=== PATIENT | female | born 1960 | race Caucasian/White ===

== ENCOUNTER 2016-10-13 13:13 | Emergency (ER) | payer OTHER ==
--- NOTE | 2016-10-13 15:19 | ED NURSING NOTES ---
Clinical Report - Nurses [facility] [address] [place] [address] 10/13/2016 13:18 Patient: CHLOE STINSON TRIAGE Triage time 13:40 Oct 13 2016. Acuity: LEVEL 4. Chief Complaint: (back pain). --13:44 Deven Montgomery R.N. 13:40 10/13/16. BP: 145/76. HR: 84. RR: 18. O2 saturation: 96%. Temp: 98.5 F. Pain level now 05/20. --13:44 Deven Montgomery R.N. Weight: 68 kg stated. Height/Length: 62 inches Per Patient. BMI: 27.4. --13:43 Deven Montgomery R.N. Medications Albuterol Sulfate HFA Inhalation. Clarithromycin Oral 500 mg, 2x a day. FLUoxetine HCl Oral. Hydrocodone-Acetaminophen Oral. LaMICtal Oral. PredniSONE Oral 40 mg, daily. Qvar Inhalation. --13:42 Deven Montgomery R.N. Methadone HCl Oral. --13:42 Deven Montgomery R.N. Allergies No Known Drug Allergy. --13:42 Deven Montgomery R.N. History Arrived by private vehicle. ( Pt states that she was running las week and fell. No pain then but 3 days ago began having R sided back. No pain with urination, no obvious). 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 SOCIAL HX: Light tobacco smoker. Occasional alcohol use. No drug use. --13:44 Deven Montgomery R.N. PROBLEMS: COPD - Chronic Obstructive Pulmonary Disease. Back Pain. Asthma. --13:42 Deven Montgomery R.N. Interventions ID band on patient. To treatment room. --13:44 Deven Montgomery R.N. DISPOSITION / DISCHARGE Departure time: 1525. Condition at departure: unchanged and stable. No learning barriers present. Discharge instructions provided and reviewed with the patient. Reviewed warnings. Reviewed medication(s). Treatments reviewed. Patient verbalized understanding. Written instructions provided in Kyrgyz. The patient was discharged by the nurse practitioner. She was discharged home. She left the Emergency Department ambulatory and via private vehicle. Patient driving. --15:35 Deven Montgomery R.N. 15:34 10/13/16. BP: 148/82. HR: 83. RR: 20. O2 saturation: 98%. Temp: 98 F. Pain level now 10/10. --15:35 Deven Montgomery R.N. Locked/Released at 10/13/2016 20:31 by Deven Montgomery R.N.
--- NOTE | 2016-10-13 15:19 | ED NURSING NOTES ---
Clinical Report - Nurses [facility] [address] [place] [address] 10/13/2016 13:18 Patient: CHLOE STINSON TRIAGE Triage time 13:40 Oct 13 2016. Acuity: LEVEL 4. Chief Complaint: (back pain). --13:44 Deven Montgomery R.N. 13:40 10/13/16. BP: 145/76. HR: 84. RR: 18. O2 saturation: 96%. Temp: 98.5 F. Pain level now 05/20. --13:44 Deven Montgomery R.N. Weight: 68 kg stated. Height/Length: 62 inches Per Patient. BMI: 27.4. --13:43 Deven Montgomery R.N. Medications Albuterol Sulfate HFA Inhalation. Clarithromycin Oral 500 mg, 2x a day. FLUoxetine HCl Oral. Hydrocodone-Acetaminophen Oral. LaMICtal Oral. PredniSONE Oral 40 mg, daily. Qvar Inhalation. --13:42 Deven Montgomery R.N. Methadone HCl Oral. --13:42 Deven Montgomery R.N. Allergies No Known Drug Allergy. --13:42 Deven Montgomery R.N. History Arrived by private vehicle. ( Pt states that she was running las week and fell. No pain then but 3 days ago began having R sided back. No pain with urination, no obvious). 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 SOCIAL HX: Light tobacco smoker. Occasional alcohol use. No drug use. --13:44 Deven Montgomery R.N. PROBLEMS: COPD - Chronic Obstructive Pulmonary Disease. Back Pain. Asthma. --13:42 Deven Montgomery R.N. Interventions ID band on patient. To treatment room. --13:44 Deven Montgomery R.N. DISPOSITION / DISCHARGE Departure time: 1525. Condition at departure: unchanged and stable. No learning barriers present. Discharge instructions provided and reviewed with the patient. Reviewed warnings. Reviewed medication(s). Treatments reviewed. Patient verbalized understanding. Written instructions provided in Pashto. The patient was discharged by the nurse practitioner. She was discharged home. She left the Emergency Department ambulatory and via private vehicle. Patient driving. --15:35 Deven Montgomery R.N. 15:34 10/13/16. BP: 148/82. HR: 83. RR: 20. O2 saturation: 98%. Temp: 98 F. Pain level now 10/10. --15:35 Deven Montgomery R.N. Locked/Released at 10/13/2016 20:31 by Deven Montgomery R.N.
--- NOTE | 2016-10-13 15:19 | ED CLINICAL REPORT ---
Clinical Report - Physicians/Mid Levels [facility] [address] [place] [address] 10/13/2016 13:18 Patient: CHLOE STINSON Time Seen: 14:21; initial patient contact, initial documentation, patient care assumed. Arrived- By private vehicle. Historian- patient. HISTORY OF PRESENT ILLNESS Chief Complaint: BACK PAIN and CHRONIC BACK PAIN. It is described as being severe and in the area of the right SI joint and right gluteus and radiating to the right hip, thigh, knee and calf. The quality is noted to be "pain" and similar to prior episodes. Onset- about 3 - 5 days ago and it is still present. Modifying factors- worsened by standing, walking, rotation to the right or left, bending over or lifting. Not relieved by anything. No bladder dysfunction or bowel dysfunction. Mild sensory loss involving the right lower leg (c/o of some numbness down to her calf area, and tingling). Patient notes the possibility of an injury but denies injury to the head or neck. Mechanism of injury- she was lifting and fell while walking. (not sure if she injured her back or not, fell about a week ago, also picks her 60lb dog up). No other injury. Similar symptoms previously: Chronically, as bad. Recent medical care: Not recently seen/assessed. REVIEW OF SYSTEMS No fever, difficulty with urination, hematuria, vaginal discharge or difficulty breathing. No chest pain, abdominal pain, vomiting or diarrhea. The patient has had urinary frequency. All systems otherwise negative, except as recorded above. PAST HISTORY See nurses notes. PROBLEMS: COPD - Chronic Obstructive Pulmonary Disease. Back Pain. Asthma. --13:42 Deven Montgomery, RRamya. SOCIAL HISTORY Light tobacco smoker. Occasional alcohol use. No drug use. No recent travel. Is a local resident. FAMILY HISTORY Negative. ADDITIONAL NOTES The nursing notes have been reviewed with agreement regarding the chief complaint, HPI, ROS, PMH and patient medications and allergies. PHYSICAL EXAM Vital Signs: 10/13/2016 13:40 BP: 145/76. HR: 84. RR: 18. O2 saturation: 96%. Temp: 98.5 F. Have been reviewed as normal and appear to be correct. Appearance: Alert. No acute distress. HEENT: Normal external inspection. Eyes: Pupils equal, round and reactive to light. ENT: Ears normal. Pharynx normal. Neck: Normal inspection. Neck nontender. Painless ROM. CVS: Heart sounds normal. Pulses normal. Respiratory: No respiratory distress. Breath sounds normal. Abdomen: No visible injury. Soft and nontender. Back: Abnormal inspection. Back tenderness present. Mild soft tissue tenderness in the lower central lumbar area. No painless ROM. Mildly limited ROM in the back- in the lumbar spine: decreased flexion and rotation to the right and left. No muscle spasm in the back, vertebral point tenderness or CVA tenderness. Skin: Skin warm and dry. Normal skin color. No rash. Normal skin turgor. Extremities: Extremities exhibit normal ROM. Extremities nontender. Neuro: Oriented X 3. Mood/affect normal. No motor deficit. No sensory deficit. LABS, X-RAYS, AND EKG Laboratory Tests: UA-Culture if indicated: (CAITIE: 10/13/2016 14:32) ( MsgRcvd 10/13/2016 14:52) Final results Test Result Flag Units (Reference) URINE COLOR YELLOW URINE APPEARANCE CLEAR URINE GLUCOSE NEGATIVE (NEGATIVE) URINE BILIRUBIN NEGATIVE (NEGATIVE) URINE KETONE NEGATIVE (NEGATIVE) URINE SPECIFIC GRAVITY 1.025 (1.010-1.030) URINE PH 6.0 (5.0-8.0) URINE PROTEIN NEGATIVE (NEGATIVE) URINE UROBILINOGEN 0.2 EU/dL (0.2-1.0) URINE NITRITE NEGATIVE (NEGATIVE) URINE BLOOD NEGATIVE (NEGATIVE) URINE LEUK ESTERASE NEGATIVE (NEGATIVE) URINE RBC NONE SEEN rbc/hpf (0-1) URINE WBC RARE wbc/hpf (0-1) URINE EPITHELIAL CELLS 0-1 EPI/hpf (0-5) URINE BACTERIA NONE SEEN (NONE SEEN) URINE COMMENT CULT NOT INDICATED URINE CULTURES ARE SET-UP BASED ON THE FOLLOWING CRITERIA:POSITIVE NITRITEPOSITIVE LEUKOCYTE ESTERASEGREATER THAN 10 WHITE BLOOD CELLSMODERATE (2+) OR GREATER BACTERIA . PROGRESS AND PROCEDURES Course of Care: 14:32 10/13/16. pt has long miley with consistent narcs, last rx's 2/5, ativan #120, hydrocodone 7.5m #120, methadone #120, almost 5,000 pills, see report for full details. Patient counseled in person regarding the patient's stable condition and diagnosis. 15:19. Differential Diagnosis: I considered Musculo-skeletal strain, contusion, disk protrusion, vertebral fracture, facet syndrome, sacroiliac joint strain, sciatica, osteoarthritis, lumbar spondylosis, ankylosing spondylitis, sacroiliac joint inflammation and ureterolithiasis as a possible cause of back pain in this patient. This is a partial list of diagnoses considered. Other possible considerations: substance abuse, uti, chronic back pain issues, pyelo. Above considerations are based on history, physical exam and laboratory data. Differential diagnosis was discussed with patient. Disposition: Discharged home in good and unchanged condition (15:19). Condition: good and stable. CLINICAL IMPRESSION Chronic nontraumatic lumbar back pain. Sciatica present on the right. Sensory deficit present. INSTRUCTIONS Warnings: GENERAL WARNINGS: Return or contact your physician immediately if your condition worsens or changes unexpectedly, if not improving as expected, or if other problems arise. SPECIFICALLY, return if you develop incontinence of feces (loss of bowel control) or urine (loss of bladder control). Prescription Medications: Medrol Dosepak: take according to package directions. Dispense one (1) dosepak. No refills. Substitution is permissible. Follow-up: Follow up with your doctor in about one week as needed. Call for an appointment. Summary of care provided to patient. Understanding of the discharge instructions verbalized by patient. (Electronically signed by Missy García A.R.N.P. 10/13/2016 16:30)
--- NOTE | 2016-10-13 15:20 | ED ORDER SUMMARY ---
..... Patient: CHLOE STINSON OrderSheet [facility] VisitID: [id number] [address] [place] [address] 56y, F Registration Date/Time: 10/13/2016 ORDER SHEET Weight: 68.0 kg (stated) Allergies: No Known Drug Allergy GENERAL ORDERS: UA-Culture if indicated Urgent (14:27 10/13/2016 Lisy A.R.N.P.) (Ack 14:29 Alice) (14:40 [facility] Tech) MEDICATION ORDERS: IV FLUIDS: ORDER SHEET NOTES: [Electronically signed by Missy García A.R.N.P. (16:30 10/13/2016)] [Electronically signed by Deven MontgomeryNKasia (20:31 10/13/2016)] [Electronically locked/signed by Deven Montgomery R.N. (20:31 10/13/2016)]
--- NOTE | 2016-10-13 15:20 | ED ORDER SUMMARY ---
..... Patient: CHLOE STINSON OrderSheet [facility] VisitID: [id number] [address] [place] [address] 56y, F Registration Date/Time: 10/13/2016 ORDER SHEET Weight: 68.0 kg (stated) Allergies: No Known Drug Allergy GENERAL ORDERS: UA-Culture if indicated Urgent (14:27 10/13/2016 Lisy A.R.N.P.) (Ack 14:29 Alice) (14:40 [facility] Tech) MEDICATION ORDERS: IV FLUIDS: ORDER SHEET NOTES: [Electronically signed by Missy García A.R.N.P. (16:30 10/13/2016)] [Electronically signed by Deven MontgomeryNKasia (20:31 10/13/2016)] [Electronically locked/signed by Deven Montgomery R.N. (20:31 10/13/2016)]
--- NOTE | 2016-10-13 20:32 | ED MAR SUMMARY ---
..... Medication Administration Record [facility] [address], [place] [id number] Patient: CHLOE STINSON Visit ID: [id number] 56y, F Weight: 68.0 kg Height/Length: 62 in BMI: 27.4 ALLERGIES: No Known Drug Allergy
--- NOTE | 2016-10-13 20:32 | ED MED RECONCILIATION SUMMARY ---
Patient: CHLOE STINSON Medication Reconciliation Report [facility] VisitID: [id number] [address] [place] [address] 56y, F Registration Date/Time: 10/13/2016 Weight: 68.0 kg Height/Length: 62 in. BMI: 27.4 ALLERGIES: No Known Drug Allergy The patient's Home Medications are listed below: THE FOLLOWING MEDICATIONS NEED TO BE RECONCILED: Albuterol Sulfate HFA Inhalation Clarithromycin Oral 500 mg, 2x a day FLUoxetine HCl Oral Hydrocodone-Acetaminophen Oral LaMICtal Oral Methadone HCl Oral PredniSONE Oral 40 mg, daily Qvar Inhalation The source(s) of the original Home Medication information: Not obtained. The following Medications were given to the patient in the Emergency Department: None. The following Medications were prescribed to the patient: Medrol Dosepak: take according to package directions. Dispense one (1) dosepak. No refills. Substitution is permissible. -- Missy García A.R.N.P.
--- NOTE | 2016-10-13 20:32 | ED DISCHARGE INSTRUCTIONS ---
Patient: CHLOE STINSON General Instructions [facility] VisitID: [id number] [address] [place] [address] 56y, F Registration Date/Time: 10/13/2016 Chronic nontraumatic lumbar back pain. Sciatica present on the right. Sensory deficit present. INSTRUCTIONS Warnings: GENERAL WARNINGS: Return or contact your physician immediately if your condition worsens or changes unexpectedly, if not improving as expected, or if other problems arise. SPECIFICALLY, return if you develop incontinence of feces (loss of bowel control) or urine (loss of bladder control). Prescription Medications: Medrol Dosepak: take according to package directions. Dispense one (1) dosepak. No refills. Substitution is permissible. Follow-up: Follow up with your doctor in about one week as needed. Call for an appointment. Summary of care provided to patient. Understanding of the discharge instructions verbalized by patient. ADDITIONAL INFORMATION Back Pain [Acute Or Chronic] Back pain is usually caused by an injury to the muscles or ligaments of the spine. Sometimes the disks that separate each bone in the spine may bulge and cause pain by pressing on a nearby nerve. Back pain may also appear after a sudden twisting/bending force (such as in a car accident), after a simple awkward movement, or lifting something heavy with poor body positioning. In either case, muscle spasm is often present and adds to the pain. Acute back pain usually gets better in one to two weeks. Back pain related to disk disease, arthritis in the spinal joints or spinal stenosis (narrowing of the spinal canal) can become chronic and last for months or years. Unless you had a physical injury (for example, a car accident or fall) X-rays are usually not ordered for the initial evaluation of back pain. If pain continues and does not respond to medical treatment, x-rays and other tests may be performed at a later time. Home Care: You may need to stay in bed the first few days. But, as soon as possible, begin sitting or walking to avoid problems with prolonged bed rest (muscle weakness, worsening back stiffness and pain, blood clots in the legs). When in bed, try to find a position of comfort. A firm mattress is best. Try lying flat on your back with pillows under your knees. You can also try lying on your side with your knees bent up towards your chest and a pillow between your knees. Avoid prolonged sitting. This puts more stress on the lower back than standing or walking. During the first two days after injury, apply an ICE PACK to the painful area for 20 minutes every 2-4 hours. This will reduce swelling and pain. HEAT (hot shower, hot bath or heating pad) works well for muscle spasm. You can start with ice, then switch to heat after two days. Some patients feel best alternating ice and heat treatments. Use the one method that feels the best to you. You may use acetaminophen (Tylenol) or ibuprofen (Motrin, Advil) to control pain, unless another pain medicine was prescribed. [NOTE: If you have chronic liver or kidney disease or ever had a stomach ulcer or GI bleeding, talk with your doctor before using these medicines.] Be aware of safe lifting methods and do not lift anything over 15 pounds until all the pain is gone. Follow Up with your doctor or this facility if your symptoms do not start to improve after one week. Physical therapy may be needed. [NOTE: If X-rays were taken, they will be reviewed by a radiologist. You will be notified of any new findings that may affect your care.] Get Prompt Medical Attention if any of the following occur: Pain becomes worse or spreads to your legs Weakness or numbness in one or both legs Loss of bowel or bladder control Numbness in the groin or genital area Sciatica Sciatica ("Lumbar Radiculopathy") causes a pain that spreads from the lower back down into the buttock, hip and leg. Sometimes leg pain can occur without any back pain. Sciatica is due to irritation or pressure on a spinal nerve as it comes out of the spinal canal. This is most often due to a bulge or rupture of a nearby spinal disk (the cartilage cushion between each spinal bone), which presses on a nearby nerve. Other causes include spinal stenosis (narrowing of the spinal canal) and spasm of the pyriform muscle (a muscle in the buttocks that the sciatic nerve passes through). Sciatica may begin after a sudden twisting/bending force (such as in a car accident), or sometimes after a simple awkward movement. In either case, muscle spasm is commonly present and contributes to the pain. The diagnosis of sciatica is made from the symptoms and physical exam. Unless you had a physical injury (such as a car accident or fall), X-rays are usually not ordered for the initial evaluation of sciatica because the nerves and disks cannot be seen on an x-ray. If signs of a compressed nerve are present (for example, loss of tendon reflex or strength in the leg), an MRI (magnetic resonance imaging) scan will need to be scheduled as an outpatient. Most sciatica (80-90%) gets better with medicine, exercise, physical therapy. If symptoms continue after at least three months of medical treatment, surgery may be considered. Home Care: You may need to stay in bed the first few days. But, as soon as possible, begin sitting or walking to avoid problems with prolonged bed rest. When in bed, try to find a position of comfort. A firm mattress is best. Try lying flat on your back with pillows under your knees. You can also try lying on your side with your knees bent up towards your chest and a pillow between your knees. Avoid prolonged sitting. This puts more stress on the lower back than standing or walking. Some persons find relief with heat (hot shower, hot bath or heating pad) and massage, while others prefer cold packs (crushed or cubed ice in a plastic bag, wrapped in a towel). Try both and use the method that feels best for 20 minutes several times a day. You may use acetaminophen (Tylenol) or ibuprofen (Motrin, Advil) to control pain, unless another pain medicine was prescribed. [ NOTE: If you have chronic liver or kidney disease or ever had a stomach ulcer or GI bleeding, talk with your doctor before using these medicines.] Be aware of safe lifting methods and do not lift anything over 15 pounds until all the pain is gone. Follow Up with your doctor or this facility if your symptoms do not start to improve after one week. Physical therapy or further testing may be needed. [NOTE: If X-rays were taken, they will be reviewed by a radiologist. You will be notified of any new findings that may affect your care.] Get Prompt Medical Attention if any of the following occur: Pain becomes worse, not controlled by the prescribed medicine Weakness or numbness in one or both legs Numbness in the groin, genital area Loss of bowel or bladder control Methylprednisolone Oral tablet What is this medicine? METHYLPREDNISOLONE (meth ill pred NISS oh lone) is a corticosteroid. It is commonly used to treat inflammation of the skin, joints, lungs, and other organs. Common conditions treated include asthma, allergies, and arthritis. It is also used for other conditions, such as blood disorders and diseases of the adrenal glands. How should I use this medicine? Take this medicine by mouth with a drink of water. Follow the directions on the prescription label. Take it with food or milk to avoid stomach upset. If you are taking this medicine once a day, take it in the morning. Do not take more medicine than you are told to take. Do not suddenly stop taking your medicine because you may develop a severe reaction. Your doctor will tell you how much medicine to take. If your doctor wants you to stop the medicine, the dose may be slowly lowered over time to avoid any side effects. Talk to your client service professional regarding the use of this medicine in children. Special care may be needed. What side effects may I notice from receiving this medicine? Side effects that you should report to your doctor or health urgent care as soon as possible: allergic reactions like skin rash, itching or hives, swelling of the face, lips, or tongue eye pain, decreased or blurred vision, or bulging eyes fever, sore throat, sneezing, cough, or other signs of infection, wounds that will not heal increased thirst mental depression, mood swings, mistaken feelings of self importance or of being mistreated pain in hips, back, ribs, arms, shoulders, or legs swelling of the ankles, feet, hands trouble passing urine or change in the amount of urine Side effects that usually do not require medical attention (report to your doctor or health urgent care if they continue or are bothersome): confusion, excitement, restlessness headache nausea, vomiting skin problems, acne, thin and shiny skin weight gain What may interact with this medicine? Do not take this medicine with any of the following medications: mifepristone This medicine may also interact with the following medications: tacrolimus vaccines warfarin What if I miss a dose? If you miss a dose, take it as soon as you can. If it is almost time for your next dose, talk to your doctor or health urgent care. You may need to miss a dose or take an extra dose. Do not take double or extra doses without advice. Where should I keep my medicine? Keep out of the reach of children. Store at room temperature between 20 and 25 degrees C (68 and 77 degrees F). Throw away any unused medicine after the expiration date. What should I tell my health care provider before I take this medicine? They need to know if you have any of these conditions: Jasper's syndrome diabetes glaucoma heart problems or disease high blood pressure infection such as herpes, measles, tuberculosis, or chickenpox kidney disease liver disease mental problems myasthenia gravis osteoporosis seizures stomach ulcer or intestine disease including colitis and diverticulitis thyroid problem an unusual or allergic reaction to lactose, methylprednisolone, other medicines, foods, dyes, or preservatives or trying to get breast-feeding What should I watch for while using this medicine? Visit your doctor or health urgent care for regular checks on your progress. If you are taking this medicine for a long time, carry an identification card with your name and address, the type and dose of your medicine, and your doctor's name and address. The medicine may increase your risk of getting an infection. Stay away from people who are sick. Tell your doctor or health urgent care if you are around anyone with measles or chickenpox. If you are going to have surgery, tell your doctor or health urgent care that you have taken this medicine within the last twelve months. Ask your doctor or health urgent care about your diet. You may need to lower the amount of salt you eat. The medicine can increase your blood sugar. If you are a diabetic check with your doctor if you need help adjusting the dose of your diabetic medicine. You have been given the following additional information: Back Pain (Acute Or Chronic) Back Pain W/ Sciatica Methylprednisolone Oral tablet (Electronically signed by Missy García A.R.N.P. 10/13/2016 16:30)
--- NOTE | 2016-10-13 20:32 | ED DISCHARGE INSTRUCTIONS ---
Patient: CHLOE STINSON General Instructions [facility] VisitID: [id number] [address] [address] 56y, F Registration Date/Time: 10/13/2016 Chronic nontraumatic lumbar back pain. Sciatica present on the right. Sensory deficit present. INSTRUCTIONS Warnings: GENERAL WARNINGS: Return or contact your physician immediately if your condition worsens or changes unexpectedly, if not improving as expected, or if other problems arise. SPECIFICALLY, return if you develop incontinence of feces (loss of bowel control) or urine (loss of bladder control). Prescription Medications: Medrol Dosepak: take according to package directions. Dispense one (1) dosepak. No refills. Substitution is permissible. Follow-up: Follow up with your doctor in about one week as needed. Call for an appointment. Summary of care provided to patient. Understanding of the discharge instructions verbalized by patient. ADDITIONAL INFORMATION Back Pain [Acute Or Chronic] Back pain is usually caused by an injury to the muscles or ligaments of the spine. Sometimes the disks that separate each bone in the spine may bulge and cause pain by pressing on a nearby nerve. Back pain may also appear after a sudden twisting/bending force (such as in a car accident), after a simple awkward movement, or lifting something heavy with poor body positioning. In either case, muscle spasm is often present and adds to the pain. Acute back pain usually gets better in one to two weeks. Back pain related to disk disease, arthritis in the spinal joints or spinal stenosis (narrowing of the spinal canal) can become chronic and last for months or years. Unless you had a physical injury (for example, a car accident or fall) X-rays are usually not ordered for the initial evaluation of back pain. If pain continues and does not respond to medical treatment, x-rays and other tests may be performed at a later time. Home Care: You may need to stay in bed the first few days. But, as soon as possible, begin sitting or walking to avoid problems with prolonged bed rest (muscle weakness, worsening back stiffness and pain, blood clots in the legs). When in bed, try to find a position of comfort. A firm mattress is best. Try lying flat on your back with pillows under your knees. You can also try lying on your side with your knees bent up towards your chest and a pillow between your knees. Avoid prolonged sitting. This puts more stress on the lower back than standing or walking. During the first two days after injury, apply an ICE PACK to the painful area for 20 minutes every 2-4 hours. This will reduce swelling and pain. HEAT (hot shower, hot bath or heating pad) works well for muscle spasm. You can start with ice, then switch to heat after two days. Some patients feel best alternating ice and heat treatments. Use the one method that feels the best to you. You may use acetaminophen (Tylenol) or ibuprofen (Motrin, Advil) to control pain, unless another pain medicine was prescribed. [NOTE: If you have chronic liver or kidney disease or ever had a stomach ulcer or GI bleeding, talk with your doctor before using these medicines.] Be aware of safe lifting methods and do not lift anything over 15 pounds until all the pain is gone. Follow Up with your doctor or this facility if your symptoms do not start to improve after one week. Physical therapy may be needed. [NOTE: If X-rays were taken, they will be reviewed by a radiologist. You will be notified of any new findings that may affect your care.] Get Prompt Medical Attention if any of the following occur: Pain becomes worse or spreads to your legs Weakness or numbness in one or both legs Loss of bowel or bladder control Numbness in the groin or genital area Sciatica Sciatica ("Lumbar Radiculopathy") causes a pain that spreads from the lower back down into the buttock, hip and leg. Sometimes leg pain can occur without any back pain. Sciatica is due to irritation or pressure on a spinal nerve as it comes out of the spinal canal. This is most often due to a bulge or rupture of a nearby spinal disk (the cartilage cushion between each spinal bone), which presses on a nearby nerve. Other causes include spinal stenosis (narrowing of the spinal canal) and spasm of the pyriform muscle (a muscle in the buttocks that the sciatic nerve passes through). Sciatica may begin after a sudden twisting/bending force (such as in a car accident), or sometimes after a simple awkward movement. In either case, muscle spasm is commonly present and contributes to the pain. The diagnosis of sciatica is made from the symptoms and physical exam. Unless you had a physical injury (such as a car accident or fall), X-rays are usually not ordered for the initial evaluation of sciatica because the nerves and disks cannot be seen on an x-ray. If signs of a compressed nerve are present (for example, loss of tendon reflex or strength in the leg), an MRI (magnetic resonance imaging) scan will need to be scheduled as an outpatient. Most sciatica (80-90%) gets better with medicine, exercise, physical therapy. If symptoms continue after at least three months of medical treatment, surgery may be considered. Home Care: You may need to stay in bed the first few days. But, as soon as possible, begin sitting or walking to avoid problems with prolonged bed rest. When in bed, try to find a position of comfort. A firm mattress is best. Try lying flat on your back with pillows under your knees. You can also try lying on your side with your knees bent up towards your chest and a pillow between your knees. Avoid prolonged sitting. This puts more stress on the lower back than standing or walking. Some persons find relief with heat (hot shower, hot bath or heating pad) and massage, while others prefer cold packs (crushed or cubed ice in a plastic bag, wrapped in a towel). Try both and use the method that feels best for 20 minutes several times a day. You may use acetaminophen (Tylenol) or ibuprofen (Motrin, Advil) to control pain, unless another pain medicine was prescribed. [ NOTE: If you have chronic liver or kidney disease or ever had a stomach ulcer or GI bleeding, talk with your doctor before using these medicines.] Be aware of safe lifting methods and do not lift anything over 15 pounds until all the pain is gone. Follow Up with your doctor or this facility if your symptoms do not start to improve after one week. Physical therapy or further testing may be needed. [NOTE: If X-rays were taken, they will be reviewed by a radiologist. You will be notified of any new findings that may affect your care.] Get Prompt Medical Attention if any of the following occur: Pain becomes worse, not controlled by the prescribed medicine Weakness or numbness in one or both legs Numbness in the groin, genital area Loss of bowel or bladder control Methylprednisolone Oral tablet What is this medicine? METHYLPREDNISOLONE (meth ill pred NISS oh lone) is a corticosteroid. It is commonly used to treat inflammation of the skin, joints, lungs, and other organs. Common conditions treated include asthma, allergies, and arthritis. It is also used for other conditions, such as blood disorders and diseases of the adrenal glands. How should I use this medicine? Take this medicine by mouth with a drink of water. Follow the directions on the prescription label. Take it with food or milk to avoid stomach upset. If you are taking this medicine once a day, take it in the morning. Do not take more medicine than you are told to take. Do not suddenly stop taking your medicine because you may develop a severe reaction. Your doctor will tell you how much medicine to take. If your doctor wants you to stop the medicine, the dose may be slowly lowered over time to avoid any side effects. Talk to your marriage performer regarding the use of this medicine in children. Special care may be needed. What side effects may I notice from receiving this medicine? Side effects that you should report to your doctor or health inspector health care facilities as soon as possible: allergic reactions like skin rash, itching or hives, swelling of the face, lips, or tongue eye pain, decreased or blurred vision, or bulging eyes fever, sore throat, sneezing, cough, or other signs of infection, wounds that will not heal increased thirst mental depression, mood swings, mistaken feelings of self importance or of being mistreated pain in hips, back, ribs, arms, shoulders, or legs swelling of the ankles, feet, hands trouble passing urine or change in the amount of urine Side effects that usually do not require medical attention (report to your doctor or health inspector health care facilities if they continue or are bothersome): confusion, excitement, restlessness headache nausea, vomiting skin problems, acne, thin and shiny skin weight gain What may interact with this medicine? Do not take this medicine with any of the following medications: mifepristone This medicine may also interact with the following medications: tacrolimus vaccines warfarin What if I miss a dose? If you miss a dose, take it as soon as you can. If it is almost time for your next dose, talk to your doctor or health inspector health care facilities. You may need to miss a dose or take an extra dose. Do not take double or extra doses without advice. Where should I keep my medicine? Keep out of the reach of children. Store at room temperature between 20 and 25 degrees C (68 and 77 degrees F). Throw away any unused medicine after the expiration date. What should I tell my health care provider before I take this medicine? They need to know if you have any of these conditions: [place]on's syndrome diabetes glaucoma heart problems or disease high blood pressure infection such as herpes, measles, tuberculosis, or chickenpox kidney disease liver disease mental problems myasthenia gravis osteoporosis seizures stomach ulcer or intestine disease including colitis and diverticulitis thyroid problem an unusual or allergic reaction to lactose, methylprednisolone, other medicines, foods, dyes, or preservatives or trying to get breast-feeding What should I watch for while using this medicine? Visit your doctor or health inspector health care facilities for regular checks on your progress. If you are taking this medicine for a long time, carry an identification card with your name and address, the type and dose of your medicine, and your doctor's name and address. The medicine may increase your risk of getting an infection. Stay away from people who are sick. Tell your doctor or health inspector health care facilities if you are around anyone with measles or chickenpox. If you are going to have surgery, tell your doctor or health inspector health care facilities that you have taken this medicine within the last twelve months. Ask your doctor or health inspector health care facilities about your diet. You may need to lower the amount of salt you eat. The medicine can increase your blood sugar. If you are a diabetic check with your doctor if you need help adjusting the dose of your diabetic medicine. You have been given the following additional information: Back Pain (Acute Or Chronic) Back Pain W/ Sciatica Methylprednisolone Oral tablet (Electronically signed by Missy García A.R.N.P. 10/13/2016 16:30)
--- NOTE | 2016-10-13 20:32 | ED MED RECONCILIATION SUMMARY ---
Patient: CHLOE STINSON Medication Reconciliation Report [facility] VisitID: [id number] [address] [place] [address] 56y, F Registration Date/Time: 10/13/2016 Weight: 68.0 kg Height/Length: 62 in. BMI: 27.4 ALLERGIES: No Known Drug Allergy The patient's Home Medications are listed below: THE FOLLOWING MEDICATIONS NEED TO BE RECONCILED: Albuterol Sulfate HFA Inhalation Clarithromycin Oral 500 mg, 2x a day FLUoxetine HCl Oral Hydrocodone-Acetaminophen Oral LaMICtal Oral Methadone HCl Oral PredniSONE Oral 40 mg, daily Qvar Inhalation The source(s) of the original Home Medication information: Not obtained. The following Medications were given to the patient in the Emergency Department: None. The following Medications were prescribed to the patient: Medrol Dosepak: take according to package directions. Dispense one (1) dosepak. No refills. Substitution is permissible. -- Missy García A.R.N.P.
--- NOTE | 2016-10-13 20:32 | ED MAR SUMMARY ---
..... Medication Administration Record [facility] [address] [place], [place] [id number] Patient: CHLOE STINSON Visit ID: [id number] 56y, F Weight: 68.0 kg Height/Length: 62 in BMI: 27.4 ALLERGIES: No Known Drug Allergy
== END 2016-10-13 15:25 | disposition home or self-care (01) ==
LOC: ED SRH 13:13
DX: G89.29 Other chronic pain (principal); M54.41 Lumbago with sciatica, right side; W18.39XA Other fall on same level, initial encounter; X50.0XXA Overexertion from strenuous movement or load, initial encounter; Y93.01 Activity, walking, marching and hiking; Y92.89 Other specified places as the place of occurrence of the external cause; Z79.899 Other long term (current) drug therapy; F17.210 Nicotine dependence, cigarettes, uncomplicated
CPT/HCPCS: 90004